=== PATIENT | female | born 1930 | race Caucasian/White ===

== ENCOUNTER 2020-12-10 18:16 | Emergency (ER) | payer MEDICAID, OTHER ==
[~2020-12-10] VITALS: Ht 149.9 cm; Wt 47.6 kg
--- NOTE | 2020-12-10 19:04 | NUR ---
pt lives alone stated fell and ems brought her here monitors appliedAWAITING EVALUATION BY ER PROVIDER.
--- NOTE | 2020-12-10 19:09 | NUR ---
pt sent to [place]
--- NOTE | 2020-12-10 20:31 | NUR ---
Patient discharged to home in stable condition. Written and verbal after care instructions given. Patient verbalizes understanding of instruction.
[2020-12-10 20:32] VITALS: BP 152/86
== END 2020-12-10 20:33 | disposition home or self-care (01) ==
LOC: ER 18:19
DX: S60.411A Abrasion of left index finger, initial encounter (principal); S09.8XXA Other specified injuries of head, initial encounter; I10 Essential (primary) hypertension; E78.00 Pure hypercholesterolemia, unspecified; W18.39XA Other fall on same level, initial encounter; Y93.89 Activity, other specified; Y92.89 Other specified places as the place of occurrence of the external cause; Y99.8 Other external cause status
CPT/HCPCS: 70450-TC; 72125-TC